=== PATIENT | female | born 1975 | race Caucasian/White ===

== ENCOUNTER 2021-01-31 12:36 | Emergency (ER) | payer SELFPAY ==
[2021-01-31] MEDS ORDERED: Ketorolac 60 MG/2 ML SDV IM ONE (13:47)
[2021-01-31] MEDS ORDERED: Cyclobenzaprine 10 MG Tab PO ONE (13:47)
--- NOTE | 2021-01-31 14:21 | EDM.PDOC ---
ED HPI GENERAL MEDICAL PROBLEM - General Chief Complaint: General Stated Complaint: RIB PAIN Time Seen by Provider: 01/31/21 13:23 Source of Information: Reports: Patient, RN Notes Reviewed History Limitations: Reports: No Limitations - History of Present Illness INITIAL COMMENTS - FREE TEXT/NARRATIVE: Patient is a 45-year-old female presenting to the emergency department with complaints of left posterior rib pain. States that she was dancing last evening when she fell, landing on her left side. Complains of pain mostly with movement, deep breathing, coughing. Denies any significant shortness of breath. She took Motrin earlier this morning. Reports spasming with movement. Treatments ROUTE DELIVERY CLERK: Reports: Other (see below) Other Treatments ROUTE DELIVERY CLERK: motrin Left Abdomen Pain Score (Numeric/FACES): 7 - Related Data Allergies Allergy/AdvReac Type Severity Reaction Status Date / Time amoxicillin Allergy Severe Anaphylactic Verified 01/31/21 13:03 Shock Penicillins Allergy Severe Anaphylactic Verified 01/31/21 13:03 Shock Home Meds: Home Meds Amphetamine/Dextroamphetamine [Adderall] 20 mg PO BID 01/31/21 [History] Cyclobenzaprine [Flexeril] 5 mg PO Q6H PRN #10 tab 01/31/21 [Rx] Escitalopram Oxalate [Lexapro] 20 mg PO DAILY 01/31/21 [History] Hydrocodone/Acetaminophen [Hydrocodone-Acetamin 5-325 mg] 1 each PO Q4H PRN #12 tablet 01/31/21 [Rx] Pregabalin [Lyrica] 50 mg PO TID 01/31/21 [History] Zolpidem [Ambien] 10 mg PO BEDTIME 01/31/21 [History] cloNIDine [Catapres-TTS 1] 0.1 mg PO BEDTIME 01/31/21 [History] Past Medical History Neurological History: Reports: Other (See Below) Other Neuro History: lupas Psychiatric History: Reports: ADHD, Anxiety, Depression, Panic Attack, PTSD - Past Surgical History Female Surgical History: Reports: Hysterectomy Social & Family History - Tobacco Use Tobacco Use Status *Q: Current Every Day Tobacco User Years of Tobacco use: 2 Packs/Tins Daily: 1 - Caffeine Use Caffeine Use: Reports: Coffee, Tea - Recreational Drug Use Recreational Drug Use: No ED ROS GENERAL - Review of Systems Review Of Systems: Comprehensive ROS is negative, except as noted in HPI. ED EXAM, GENERAL - Physical Exam Exam: See Below Exam Limited By: No Limitations General Appearance: Alert, WD/WN, No Apparent Distress Respiratory/Chest: No Respiratory Distress, Lungs Clear, Normal Breath Sounds, No Accessory Muscle Use, Other (tenderness to palpation of posterior and lateral left ribs 8-12. No stepoffs or ecchymosis.) Cardiovascular: Normal Peripheral Pulses, Regular Rate, Rhythm, No Edema, No Gallop, No JVD, No Murmur, No Rub Neurological: Alert, Oriented, CN II-XII Intact, Normal Cognition, Normal Gait, Normal Reflexes, No Motor/Sensory Deficits Psychiatric: Normal Affect, Normal Mood Course - Vital Signs Last Recorded V/S: Last Vital Signs Temp 99.6 F 01/31/21 13:10 Pulse 95 01/31/21 13:10 Resp BP 143/93 H 01/31/21 13:10 Pulse Ox - Orders/Labs/Meds Meds: Medications Discontinued Medications Generic Name Dose Route Start Last Admin Trade Name Freq PRN Reason Stop Dose Admin Cyclobenzaprine HCl 5 mg 01/31/21 13:47 01/31/21 14:05 Cyclobenzaprine 10 Mg Tab PO 01/31/21 13:48 5 mg ONETIME ONE Administration Ketorolac Tromethamine 60 mg 01/31/21 13:47 01/31/21 13:50 Ketorolac 60 Mg/2 Ml Sdv IM 01/31/21 13:48 60 mg ONETIME ONE Administration - Re-Assessments/Exams Free Text/Narrative Re-Assessment/Exam: 01/31/21 14:55 Chest x-ray shows nondisplaced rib fractures of ribs 7 and 8. No evidence of pneumothorax. I will send prescription for Randolph for pain. Discussed return precautions. Discharge instructions as documented. Departure - Departure Time of Disposition: 14:59 Disposition: Home, Self-Care 01 Condition: Good Clinical Impression: Ribs, multiple fractures Qualifiers: Encounter type: initial encounter Fracture type: closed Laterality: left Qualified Code(s): S22.42XA - Multiple fractures of ribs, left side, initial encounter for closed fracture - Discharge Information *PRESCRIPTION DRUG MONITORING PROGRAM REVIEWED*: Yes *COPY OF PRESCRIPTION DRUG MONITORING REPORT IN PATIENT CJ: No Prescriptions: Cyclobenzaprine [Flexeril] 5 mg PO Q6H PRN #10 tab PRN Reason: Muscle Spasm - Painful Hydrocodone/Acetaminophen [Hydrocodone-Acetamin 5-325 mg] 1 each PO Q4H PRN #12 tablet PRN Reason: Pain Referrals: PCP,None [Primary Care Provider] - Forms: ED Department Discharge Additional Instructions: You were seen in the emergency department today for left rib pain after falling last evening. X-rays are completed and show nondisplaced rib fractures of ribs 7 and 8 on the left side. Recommend routine Tylenol and ibuprofen for pain. For pain not relieved by this, a prescription for hydrocodone and Tylenol has been provided. Use this only as prescribed. Do not work or drive for 12 hours after taking this as it can be sedating. You have also been provided prescription for Flexeril. Use this only as prescribed. Follow-up in the clinic with primary care if symptoms or not improving over the next few weeks. Return to ER for any new or worsening symptoms. Sepsis Event Note (ED) - Evaluation Sepsis Screening Result: No Definite Risk
--- NOTE | 2021-01-31 16:40 | CR ---
Chest and left ribs: Frontal view of the chest was obtained as well multiple views of the left ribs. Comparison: No prior chest or rib exam is available. Heart size and mediastinum are normal. Lungs are clear with no acute parenchymal change. Fractures are noted within the posterior left seventh and eighth ribs. No additional rib fracture is definitely appreciated. Surgical anastomotic sutures are seen within the upper left abdomen. Previous right shoulder/humerus surgery is noted. Impression: 1. Fractures within the posterior left seventh and eighth ribs. 2. Nothing acute is otherwise seen on accompanying chest x-ray. Diagnostic code #3 MTDD
== END 2021-01-31 15:15 | disposition home or self-care (01) ==
LOC: EDSEX 12:36 → JD.ED 12:36
DX: S22.42XA Multiple fractures of ribs, left side, initial encounter for closed fracture (principal); Z72.0 Tobacco use; Z88.0 Allergy status to penicillin; W18.30XA Fall on same level, unspecified, initial encounter; Y93.41 Activity, dancing; Y92.009 Unspecified place in unspecified non-institutional (private) residence as the place of occurrence of the external cause
CPT/HCPCS: 71101; 96372; 99283; A9270; J1885

== ENCOUNTER 2022-05-05 15:51 | Emergency (ER) | payer OTHER ==
[2022-05-05] MEDS ORDERED: HYDROmorphone 1 MG/ML Syringe IM ONE (16:43)
[2022-05-05] MEDS ORDERED: HYDROmorphone 0.5 MG/0.5 ML Syringe IM ONE (19:11)
[2022-05-05] MEDS ORDERED: Ketorolac 60 MG/2 ML SDV IM ONE (19:49)
== END 2022-05-05 21:30 | disposition home or self-care (01) ==
LOC: JD.ED 15:51
DX: T87.89 Other complications of amputation stump (principal); R51.9 Headache, unspecified; R42 Dizziness and giddiness; F41.9 Anxiety disorder, unspecified; F32.9 Major depressive disorder, single episode, unspecified; Z89.512 Acquired absence of left leg below knee; Z79.899 Other long term (current) drug therapy; W05.0XXA Fall from non-moving wheelchair, initial encounter
CPT/HCPCS: 70450; 73564; 96372; 99284; J1170; J1885

== ENCOUNTER 2023-03-18 23:19 | Emergency (ER) | payer BC ==
[2023-03-19 00:43] LABS: HEMATOCRIT 40.6 % (37.0-47.0); HEMOGLOBIN 13.8 gm/dl (12.0-16.0); MEAN CORPUSCULAR HEMOGLOBIN 31.5 pg (28.0-32.0); MEAN CORPUSCULAR VOLUME 92.7 fl (83.0-99.0); MEAN PLATELET VOLUME 8.2 fl (9.4-12.3); PLATELET COUNT,PLT 405 K/mm3 (150-400); RED BLOOD CELL COUNT 4.38 M/mm3 (4.10-5.30); WHITE BLOOD CELL COUNT,WBC 8.87 K/mm3 (3.9-11.3)
[2023-03-19 00:49] LABS: BICARBONATE,ARTERIAL 25.2 meq/L (22.0-26.0); O2 SATURATION ARTERIAL 98.7 % (96.0-97.0); PCO2 ARTERIAL 36.2 mmHg (35.0-45.0)
[2023-03-19 01:16] LABS: INR 0.99; PROTHROMBIN TIME 10.6 SECONDS (9.7-12.0)
[2023-03-19 01:17] LABS: D-DIMER QUANTITATIVE 0.24 mg/L (0.19-0.50)
[2023-03-19 01:18] LABS: PTT,PARTIAL THROMBOPLSTIN TIME 26.7 SECONDS (21.7-31.4)
[2023-03-19 01:26] LABS: BAND PERCENT MAN 0 % (0-10); BASOPHILS PERCENT MAN 1 (0.1-1.2); EOSINOPHILS PERCENT MAN 1 % (0.7-5.8); LYMPHOCYTES % ATYPICAL MANUAL 0 %; LYMPHOCYTES PERCENT MAN 17 % (20-40); MONOCYTES PERCENT MAN 8 % (2-10); PLATELET COUNT ESTIMATE INCREASED
[2023-03-19 01:37] LABS: A/G RATIO 0.9 (1-2); ALANINE AMINOTRANSFERASE,ALT 27 U/L (14-59); ALBUMIN 3.7 g/dl (3.4-5.0); ALKALINE PHOSPHATASE 130 U/L (46-116); ANION GAP 14.7 (5-15); ASPARTATE AMNIOTRANSFERASE,AST 21 U/L (15-37); BILIRUBIN TOTAL 0.8 mg/dL (0.2-1.0); BLOOD UREA NITROGEN,BUN 13 mg/dL (7-18); CALCIUM 9.9 mg/dL (8.5-10.1); CARBON DIOXIDE,CO2 28 mEq/L (21-32); CHLORIDE,CL 103 mEq/L (98-107); EST CRCL DRUG DOSING (CG) 49.42 mL/min; ESTIMATED GFR 69 mL/min (>60); GLUCOSE RANDOM 109 mg/dL (70-99); MAGNESIUM 2.4 mg/dL (1.8-2.4); POTASSIUM,K 3.7 mEq/L (3.5-5.1); PROTEIN TOTAL,TP 7.9 g/dl (6.4-8.2); SODIUM,NA 142 mEq/L (136-145); TSH 2.566 uIU/mL (0.358-3.74)
[2023-03-19 01:40] LABS: TROPONIN I HIGH SENSITIVITY < 4 pg/mL (<=51)
[2023-03-19] MEDS ORDERED: Haloperidol Lactate 5 MG/ML SDV IM ONE (02:56)
== END 2023-03-19 03:11 | disposition home or self-care (01) ==
LOC: JD.ED 23:19
DX: G43.909 Migraine, unspecified, not intractable, without status migrainosus (principal); R06.4 Hyperventilation; Z20.822 Contact with and (suspected) exposure to COVID-19; Z86.16 Personal history of COVID-19; Z87.891 Personal history of nicotine dependence; Z79.899 Other long term (current) drug therapy; Z88.0 Allergy status to penicillin; Z88.1 Allergy status to other antibiotic agents; Z88.6 Allergy status to analgesic agent; Z88.5 Allergy status to narcotic agent; Z88.8 Allergy status to other drugs, medicaments and biological substances
CPT/HCPCS: 36415; 36600; 80053; 82803; 83735; 83880; 84443; 84484; 85007; 85027; 85379; 85610; 85730; 86140; 87040; 87635; 87804; 93005; 96372; 99284; J1630; U0002